=== PATIENT | male | born 1950 | race Caucasian/White ===

== ENCOUNTER → 2016-10-17 | Outpatient (CLI) | payer MEDICARE, BC ==
--- NOTE | 2016-10-17 15:22 | NM ---
EXAMINATION TYPE: NM hepatobiliary w EF DATE OF EXAM: 10/17/2016 COMPARISON: NONE HISTORY: Right upper quadrant pain TECHNIQUE: After the intravenous administration of 5.5 mCi Tc 99m Mebrofenin hepatobiliary scintigrap hy is performed. Immediate images post injection. FINDINGS: There is satisfactory initial accumulation of tracer by the liver. The gallbladder is visualized wit hin 6 minutes. The small bowel was not visualized until after the ingestion of ensure. At one hour 8 ounces of oral ensure plus is given to mimic CCK and gallbladder ejection fraction is calculated at 8 3 %, above normal. Therefore there is no scintigraphic evidence of cystic or common bile duct obstru ction to suggest acute cholecystitis or gallbladder dyskinesia. IMPRESSION: 1. AMBIGUOUS STUDY. I COULD NOT EXCLUDE A PARTIAL OBSTRUCTION OF THE DISTAL COMMON DUCT. ERCP VERSUS MRCP WOULD BE SUGGESTED. 2. HYPOCONTRACTILITY OF THE GALLBLADDER.
== END | disposition home or self-care (01) ==
LOC: RADNMMAIN 12:30
PROVIDERS: ATTEND Family Medicine
DX: N32.89 Other specified disorders of bladder (principal); R10.11 Right upper quadrant pain
CPT/HCPCS: 78226; A9537

== ENCOUNTER → 2018-12-02 | Outpatient (CLI) | payer MEDICARE ==
--- NOTE | 2018-12-02 21:45 | CT ---
EXAMINATION TYPE: CT brain wo/w con DATE OF EXAM: 12/02/2018 COMPARISON: None HISTORY: 68-year-old male with Syncope TECHNIQUE: Examination was done in axial plane before and after intravenous contrast. 100 mL Isovue -300 IV contrast was administered. Coronal and sagittal reconstructions performed. CT DLP: 2144.6 mGycm Automated exposure control for dose reduction was used. FINDINGS: There is no evidence of acute intracranial hemorrhage, acute ischemic changes, mass, mass-effect, or extra-axial fluid collection. There is no effacement of cerebral sulci or basal subarachnoid cister ns. There is no hydrocephalus. There is no midline shift. Abbasi-white matter distinction is preserv ed. The nondominant right vertebral artery may terminate as a PICA branch. Atherosclerotic calcifications within the carotid siphons. Mild bifrontal cortical atrophy. Partially empty sella is noted. Dural venous sinuses are patent. No enhancing intracranial lesions. IMPRESSION: No acute intracranial abnormality seen. Mild bifrontal atrophy. No enhancing intracranial lesions see n.
== END | disposition home or self-care (01) ==
LOC: RADCTMAIN 06:25
PROVIDERS: ATTEND Family Medicine
DX: G31.9 Degenerative disease of nervous system, unspecified (principal)
CPT/HCPCS: 82565; 84520; 70470; 36415; Q9967

== ENCOUNTER → 2018-12-26 | Outpatient (CLI) | payer MEDICARE ==
--- NOTE | 2018-12-27 02:21 | MR ---
EXAMINATION TYPE: MR MRCP DATE OF EXAM: 12/26/2018 COMPARISON: None HISTORY: CBD obstruction Standard multiplanar, multisequence MRI departmental protocol Multiplanar, multisequence images of the abdomen were acquired. FINDINGS: Liver shows no focal defect. Gallbladder has normal size and contour. The intra and extrahe patic bile ducts are fairly normal diameter without dilation. I see no filling defect in the common b ile duct. There is no evidence of pancreatic mass. There is 8 mm cystic enlargement of the distal pancreatic du ct. There is accessory pancreatic duct noted. Mid and proximal pancreatic duct are not dilated. There is no adrenal mass. Kidneys show no hydronephrosis. There is no sign of retroperitoneal adenopa thy. Stomach appears normal. Spleen has normal size and contour. There is no sign of ascites.. IMPRESSION: There is accessory pancreatic duct. There is focal dilation of the distal pancreatic duct that could relate to old inflammatory process. No pancreatic mass seen. Normal common bile duct and gallbladder. No evidence of obstruction or stone.
== END | disposition home or self-care (01) ==
LOC: RADMRIMAIN 19:37
PROVIDERS: ATTEND Family Medicine
DX: K86.89 Other specified diseases of pancreas (principal)
CPT/HCPCS: 74181

== ENCOUNTER → 2019-01-03 | Outpatient (CLI) | payer MEDICARE ==
--- NOTE | 2019-01-04 11:21 | US ---
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 Patient states no symptoms EXAM MEASUREMENTS: RIGHT: Peak Systolic Velocity (PSV) cm/sec ----- Right CCA: 72.2 ----- Right ICA: 80.5 ----- Right ECA: 66.6 ICA/CCA ratio: 1.1 RIGHT: End Diastole cm/sec ----- Right CCA: 24.5 ----- Right ICA: 23.4 ----- Right ECA: 11.2 LEFT: Peak Systolic Velocity (PSV) cm/sec ----- Left CCA: 86.7 ----- Left ICA: 83.6 ----- Left ECA: 94.2 ICA/CCA ratio: 1.0 LEFT: End Diastole cm/sec ----- Left CCA: 25.5 ----- Left ICA: 26.5 ----- Left ECA: 15.0 VERTEBRALS (direction of flow): Right Vertebral: Antegrade Left Vertebral: Antegrade Rhythm: Normal Bilateral intimal thickening, plaque bilateral bulb, no elevated velocities, no significant stenosis. A larger nonobstructing plaque is in the right carotid bulb. This has posterior shadowing. Atheromato us plaquing within the left carotid bulb without flow-limiting stenosis based on velocities. Turbulen t flow is evident. IMPRESSION: 1. Intimal thickening without significant flow-limiting stenosis. Some atheromatous plaque is in the bilateral carotid bulbs. 2. Bilateral vertebral arteries have antegrade flow. Criteria for Assigning % of Stenosis / Diameter reduction (Estimation based on the indirect measurements of the internal carotid artery velocities (ICA PSV). 1. Normal (no stenosis)=ICA PSV < 125 cm/s: ratio < 2.0: ICA EDV<40 cm/s. 2. Less than 50% stenosis=ICA PSV < 125 cm/s: ratio < 2.0: ICA EDV<40 cm/s. 3. 50 to 69% stenosis=ICA PSV of 125 to 230 cm/s: ration 2.0 ? 4.0: ICA EDV 40-100 cm/s. 4. Greater than 70% stenosis to near occlusion= ICA PSV > 230 cm/s: ratio > 4.0: ICA EDV > 100 cm/s. 5. Near occlusion= ICA PSV velocities may be low or undetectable: variable ratio and ICA EDV. 6. Total occlusion=unable to detect flow.
== END | disposition home or self-care (01) ==
LOC: RADUSMAIN 17:16
PROVIDERS: ATTEND Psychiatry & Neurology Neurology
DX: I65.23 Occlusion and stenosis of bilateral carotid arteries (principal); I77.89 Other specified disorders of arteries and arterioles
CPT/HCPCS: 93880

== ENCOUNTER → 2019-10-29 | Outpatient (CLI) | payer MEDICARE | END | disposition home or self-care (01) | LOC: LABWHC1 10:49 | PROVIDERS: ATTEND Family Medicine | DX: R50.9 Fever, unspecified (principal); R61 Generalized hyperhidrosis ==

== ENCOUNTER → 2021-03-16 | Outpatient (CLI) | payer MEDICARE ==
--- NOTE | 2021-03-16 16:51 | MR ---
EXAMINATION TYPE: MR shoulder LT wo con DATE OF EXAM: 03/16/2021 COMPARISON: Radiograph 02/18/2021 HISTORY: 70-year-old male M2 5.562, Pain in left shoulder TECHNIQUE: Multiplanar, multisequence imaging of the left shoulder is performed without contrast. FINDINGS: There is thickening and abnormal signal at the junction of the intracapsular and extracapsular portio ns of the long head biceps tendon. Overlying soft tissue thickening and edema is also noted. The extr acapsular portion remains properly situated along the bicipital groove but with moderate tibial synov ial fluid. Heterogeneous signal of the subscapularis tendon. The majority of the tendon remains intact. There is widening of the AC joint due to prominent fluid dissecting into the joint space from the und erlying subacromial-subdeltoid bursa. This fluid is contiguous with the glenohumeral joint. The continuity is secondary to complete tear of both supraspinatus and infraspinatus tendons. There i s variable tendon stump retraction up to 6.5 cm to the level of the suprascapular notch. Mild fatty infiltration of the infraspinatus muscle belly. Subscapularis and infraspinatus muscle bul k is maintained. Moderate diffuse thinning of the mid to inferior humeral head articular cartilage and superior glenoi d articular cartilage. Superior subluxation of the humeral head consistent under the acromion. Edematous change throughout both supraspinatus and infraspinatus muscle bellies. There appears to be a subcoracoid bursal effusion anterior to the subscapularis muscle belly. No Hill-Sachs deformity or os acromiale. No suspicious bone marrow replacement. IMPRESSION: 1. Massive rotator cuff tear involving the entire supraspinatus and infraspinatus tendons with variab le stump retraction up to 6.5 cm to the level of the suprascapular notch. Mild fatty infiltration of the infraspinatus muscle belly. Reactive edema throughout both supraspinatus and infraspinatus muscle bellies. 2. Joint effusion contiguous with the subacromial/subdeltoid bursa and fluid further dissecting into and widening the AC joint 3. Thickening and abnormal signal at the junction of the intracapsular and extracapsular portions of the long head biceps tendon. Partial tear difficult to exclude. 4. Mild overall glenohumeral joint OA. Glenohumeral joint instability secondary to the rotator cuff t ears. 5. Subcoracoid bursitis
== END | disposition home or self-care (01) ==
LOC: RADMRIMAIN 11:05
PROVIDERS: ATTEND Orthopaedic Surgery
DX: M75.102 Unspecified rotator cuff tear or rupture of left shoulder, not specified as traumatic (principal); M19.012 Primary osteoarthritis, left shoulder; M75.52 Bursitis of left shoulder

== ENCOUNTER → 2021-05-05 | Day surgery (SDC) | payer MEDICARE ==
[2021-05-03 15:51] VITALS: BMI 29.7
--- NOTE | 2021-05-04 17:30 | HP ---
HISTORY AND PHYSICAL REASON FOR ADMISSION: Surgery scheduled for 05/05/2021 HISTORY OF PRESENT ILLNESS: Lawrence Rabago is a 70 year old gentleman seen with progressive left shoulder pain. We discussed options for treatment. He elected to proceed with arthroscopy. Consent is obtained. PAST MEDICAL HISTORY: Hyperlipidemia and hypertension. PAST SURGICAL HISTORY: Herniorrhaphy. MEDICATIONS: Losartan, simvastatin. ALLERGIES: None. SOCIAL HISTORY: Denies current tobacco use. PHYSICAL EVALUATION OF THE LEFT SHOULDER: Flexion is 140, abduction is 130 degrees, external rotation is 40 degrees with pain and significant weakness. Tenderness along the anterolateral acromion rotator cuff insertion site. Impingement positive at 90 degrees. Drop-arm sign is positive. Cross adduction sign is positive. Distal neurovascular exam is intact. RADIOGRAPHS: Left shoulder revealed a type 2 acromion, evidence for cystic changes of the tuberosity. MRI left shoulder revealed a massive retracted rotator cuff tear. IMPRESSION: 1. Left shoulder impingement with massive retracted rotator cuff tear. 2. Left shoulder acromioclavicular joint osteoarthritis. 3. Hypertension. 4. Hyperlipidemia. PLAN: Left shoulder arthroscopy, subacromial decompression, arthroscopic rotator cuff repair, possible Anjana procedure and debridement. Surgery is scheduled for 05/05/2021. MMODL / IJN: [id number] /
[~2021-05-05] MED LIST: ARTIFICIAL TEARS-HYPROMELLOSE DROPS 15 ML BTL RIGHT EYE STA; DEXAMETHASONE SOD PHOSPHATE 4 MG/ML 1 ML VIAL IV ONE; LACTATED RINGERS 1,000 ML IV ONE; LIDOCAINE 1% (10MG/ML) FOR IV START INTRADERMA ONE; LIDOCAINE 1% INJ 10MG/ML (20 ML MDV) ONE; MIDAZOLAM 2 MG/2 ML VIAL IV ONE; MIDAZOLAM 2 MG/2 ML VIAL ONE; ONDANSETRON 4 MG/2 ML VIAL IVP ONE; ONDANSETRON 4 MG/2 ML VIAL ONE; PHENYLEPHRINE-0.9% NACL SYG 1,000 MCG/10 ML SYRINGE ONE; PROPOFOL 10 MG/ML 20 ML VIAL IV ONE; SUCCINYLCHOLINE CHLORIDE 100 MG/5 ML SYR IV ONE; ePHEDrine 50 MG/ML 1 ML AMP ONE; fentaNYL (PF) 50 MCG/ML 2 ML AMP IV ONE; fentaNYL (PF) 50 MCG/ML 2 ML AMP ONE
--- NOTE | 2021-05-05 12:47 | P.OP ---
Date of Procedure: 05/05/21 Preoperative Diagnosis: Left shoulder impingement Postoperative Diagnosis: 1. Left shoulder massive retracted rotator cuff tear 2. Left shoulder impingement 3. Left shoulder acromioclavicular joint osteoarthritis 4. Left shoulder partial long head biceps tendon tear Procedure(s) Performed: 1. Left shoulder arthroscopic rotator cuff repair 2. Left shoulder arthroscopic subacromial decompression 3. Left houlder arthroscopic Anjana procedure 4. Left shoulder arthroscopic biceps tenotomy Implants: 24.75 Arthrex swivel lock anchors Anesthesia: GETA, regional (Interscalene block) Surgeon: Juve Haile Control Clerk Head #1: Ace Hale Estimated Blood Loss (ml): 11 Pathology: none sent Condition: stable Disposition: PACU Indications for Procedure: 70-year-old patient seen with progressive left shoulder pain. After having treatment options discussed, he elected to proceed with arthroscopy. Operative Findings: See description of procedure Description of Procedure: Patient underwent an interscalene block by department of anesthesia. The patient was then taken to the operative suite. The patient underwent a general anesthetic by the department of anesthesia. The patient was placed into a lateral position and secured. There was appropriate padding of the bony prominence. Left shoulder was then prepped and draped in normal sterile orthopedic fashion. We placed the extremity in 10 pounds of longitudinal traction. A posterior incision was now made for a posterior working portal site. The trocar and cannula were inserted into the glenohumeral joint. Arthroscopy was initiated. Spinal needle was now inserted anteriorly, to ascertain the anterior working portal site. An incision was now made in that area, a trocar was inserted followed by a probe. There was some partial tearing and hyperemia long head biceps tendon. There were grade 1 chondromalacia changes of the humeral joint. There was an obvious massive rotator cuff tear I could see from the glenohumeral side. The labrum appeared stable. I performed an arthroscopic biceps tenotomy. I again probe the labrum and it was found to be stable. Instruments removed from glenohumeral joint. Utilizing the posterior working portal site, the trocar and cannula were inserted into the subacromial space. Arthroscopy initiated. I made an incision 2 fingerbreadths lateral to the acromion. I introduced my trocar followed by my ArthroCare ablator. I now began ablating thick subacromial bursal tissue, which exposed the undersurface of the anterior acromion. There was diminished subac romial space. There was a very prominent anterior acromion. A motorized bur was introduced and a subacromial decompression was performed. I also excised some osteophytes off the inferior aspect of the distal clavicle. The AC joint was visualized and noted to be fairly arthritic. The motorized bur was introduced in the anterior portal site and a Anjana procedure was performed without difficulty, decompressing the AC joint nicely. I turned my attention to the rotator cuff. There was a massive retracted rotator cuff tear. When I grabbed onto the tendon it was essentially immobile. At this point I began meticulously releasing the tendon beginning along the anterior margin a were, well aware onto the posterior margin. I still could not pull the tendon over the footprint. I now with the assistance of Renny EMERY began converging the tendon tissue centrally and ultimately utilized 8 [id number] converging sutures to close down the tendon. I could now just barely washing machine loader and puller the footprint. I abraded the footprint with a motorized bur. I passed 4 everted mattress sutures through good bites of rotator cuff tendon. I made an project crew worker portal site off the lateral acromion. I now punched holes in the footprint for insertion of anchors. The anterior 4 limbs of suture were passed through the eyelet of a 4.75 Arthrex swivel lock anchor. I placed the eyelet into the pre-punch hole and held in position while Renny EMERY tensioned the 4 limbs of suture and deployed that anchor. Suture limbs were clipped. We good fixation anteriorly. I did the same thing with a posterior 4 suture limbs passing them through the eye of a 4.7 5 swivel lock anchor. I placed that I'll into the pre-punch hole while Renny EMEYR again tension all 4 suture limbs and deployed the anchor was good fixation noted. Suture limbs were clipped. We had a reasonable repair although it was under a reasonable amount of tension. Instruments now removed from the portal sites. All portal sites were approximated with nylon suture. Sterile dressings were applied followed by a shoulder immobilizer. Ace EMERY assisted in this complex case. The patient was awakened, transferred to a bed, and taken to recovery in stable condition. The prognosis for this patient's repair remains guarded regarding this repair for a massive retracted tear.
[2021-05-05 13:09] VITALS: TEMP 97.4
[2021-05-05] MEDS: ARTIFICIAL TEARS-HYPROMELLOSE DROPS 15 ML BTL RIGHT EYE PRN ×2 (14:45→14:47)
[2021-05-05 14:50] VITALS: BP 150/80; PULSE 77; RESP 17
--- NOTE | 2021-05-05 15:35 | P.ANPRN ---
Procedure Note - Anesthesia - Nerve Block Performed Left Interscalene Single Time Out Performed: Yes ([id number]) Date of Procedure: 05/05/21 Procedure Start Time: Procedure Stop Time: Location of Patient: PreOp Indication: Acute Post-Operative Pain, Requested by Surgeon Specifically requested for management of pain by DrGlenna: Juve Haile Sedation Type: Sedate with meaningful contact maintained Preparation: Sterile Prep Position: Supine Catheter: None Needle Types: Pajunk Needle Gauge: 21 Ultrasound used to visualize needle placement: Yes Ultrasound used to observe medication spread: Yes Injectate: 0.5% Ropivacaine (see comment for volume) (30cc) Blood Aspirated: No Pain Paresthesia on Injection Noted: No Resistance on Injection: Normal Image Stored and Saved: Yes Events: Uneventful and Well Tolerated
== END | disposition home or self-care (01) ==
LOC: OR 08:19
PROVIDERS: ATTEND Orthopaedic Surgery
DX: M75.42 Impingement syndrome of left shoulder (principal); M75.102 Unspecified rotator cuff tear or rupture of left shoulder, not specified as traumatic; M25.812 Other specified joint disorders, left shoulder; M19.012 Primary osteoarthritis, left shoulder; S46.112A Strain of muscle, fascia and tendon of long head of biceps, left arm, initial encounter; X58.XXXA Exposure to other specified factors, initial encounter; Z98.890 Other specified postprocedural states; K21.9 Gastro-esophageal reflux disease without esophagitis; E78.5 Hyperlipidemia, unspecified; I10 Essential (primary) hypertension; Z79.899 Other long term (current) drug therapy
CPT/HCPCS: 64415; 76942; 29826; 29827; 29824; C1713 ×2; J2250; J1100; J0690; J2405; J2001; J3010; J2370; J0330; J2704